=== PATIENT | male | born 1985 | race Caucasian/White ===

== ENCOUNTER 2016-11-02 15:00 | Observation (INO) | payer MEDICAID ==
[~2016-11-02] VITALS: Ht 180.3 cm; Wt 79.7 kg
[2016-11-02 16:03] LABS: BLOOD UREA NITROGEN 17 mg/dL (7-18)
[2016-11-02 16:05] LABS: ACETAMINOPHEN < 2 mcg/mL (10-30)
[2016-11-02 16:13] LABS: DAU SCREEN DISCLAIMER
[2016-11-03] MEDS ORDERED: BUPR-173 PO ×2 (00:11→22:20)
[2016-11-03] MEDS ORDERED: HYDR10TA4 PO (00:12)
[2016-11-03] MEDS ORDERED: ALBU0.63 NEB (00:12)
[2016-11-03] MEDS ORDERED: ONDANSETRON 2MG/ML, 2ML IVPush PRN (02:30)
[2016-11-03] MEDS ORDERED: TRAZODONE 50MG TABLET PO PRN (02:30)
[2016-11-03] MEDS ORDERED: ACETAMINOPHEN 325 MG TABLET PO PRN (02:30)
[2016-11-03] MEDS ORDERED: OLANZAPINE 2.5 MG TABLET PO PRN (02:30)
[2016-11-03 22:27] VITALS: BP 127/76
[2016-11-03 22:32] VITALS: BP_SYST 100; BP_SYST 110; BP_DIAS 64; BP_DIAS 68
[2016-11-04 08:20] VITALS: BP 105/70
[2016-11-04 19:40] VITALS: BP 108/66
[2016-11-04] MEDS: hydrOXyzine 50MG TABLET PO PRN (21:32)
[2016-11-04] MEDS: BUPROPION SR 100 MG TABLET PO SCH (21:32)
[2016-11-05 07:51] VITALS: BP 91/57
[2016-11-05] MEDS: BUPROPION SR 100 MG TABLET PO SCH ×2 (09:08→20:18)
[2016-11-05] MEDS: NICOTINE GUM 2 MG BC PRN ×2 (16:48→19:35)
[2016-11-05 20:00] VITALS: BP 106/69
[2016-11-05] MEDS: hydrOXyzine 50MG TABLET PO PRN (23:01)
[2016-11-06 07:18] VITALS: BP 102/66
[2016-11-06] MEDS: BUPROPION SR 100 MG TABLET PO SCH ×2 (08:29→20:59)
[2016-11-06 19:58] VITALS: BP 106/70
[2016-11-06] MEDS: NICOTINE GUM 2 MG BC PRN (19:59)
[2016-11-07 08:00] VITALS: BP 102/68
[2016-11-07] MEDS: BUPROPION SR 100 MG TABLET PO SCH ×2 (09:39→20:17)
[2016-11-07 19:31] VITALS: BP 108/75
== END 2016-11-07 20:36 ==
LOC: ED 18:44 → SUATTDRO 11-03 02:17 → EDIP 11-03 02:24 → 3E 11-03 21:11
PROVIDERS: ADMIT Hospitalist; ATTEND Internal Medicine
DX: F20.9 Schizophrenia, unspecified (principal); R44.1 Visual hallucinations; R44.0 Auditory hallucinations; F32.9 Major depressive disorder, single episode, unspecified; F22 Delusional disorders; F41.9 Anxiety disorder, unspecified; J45.909 Unspecified asthma, uncomplicated
CPT/HCPCS: 36415; 80048; 80307; 80329; 82040; 83735; 84439; 84443; 85025; 93005; 99285; G0378; G0480